=== PATIENT | male | born 1980 | race Caucasian/White ===

== ENCOUNTER 2020-11-04 00:46 | Inpatient (IN) | payer MEDICARE, BC ==
[~2020-11-04] VITALS: Ht 172.7 cm; Wt 120.2 kg
[2020-11-04] MEDS ORDERED: IV NORMAL SALINE 1000 ML BAG IV ONE ×3 (01:00→03:45)
[2020-11-04] MEDS ORDERED: KETOROLAC TROMETHAMINE 30 MG INJ IVP ONE (01:00)
[2020-11-04] MEDS ORDERED: PANTOPRAZOLE SODIUM 40 MG VIAL IV ONE (01:00)
[2020-11-04] MEDS ORDERED: ONDANSETRON 4 MG/2 ML VIAL IV ONE ×2 (01:00→03:45)
--- NOTE | 2020-11-04 01:00 | NUR ---
Pt from home, here for 10 abdominal pain non radiating, no n/v/d.
[2020-11-04 01:12] LABS: HEMATOCRIT 49.4 % (36.7-47.1); MEAN CORPUSCULAR HEMOGLOBIN 32.2 uug (23.8-33.4); PLATELET COUNT (AUTO) 199 K/uL (152-348)
[2020-11-04] MEDS ORDERED: KETOROLAC TROMETHAMINE 30 MG INJ ONE (01:12)
[2020-11-04] MEDS ORDERED: ONDANSETRON 4 MG/2 ML VIAL ONE ×2 (01:12→03:42)
[2020-11-04] MEDS ORDERED: PANTOPRAZOLE SODIUM 40 MG VIAL ONE (01:13)
[2020-11-04 01:21] LABS: CREATININE 1.4 mg/dL (0.6-1.3); POTASSIUM 3.7 mmol/L (3.5-5.1)
[2020-11-04] MEDS ORDERED: HYDROMORPHONE 1 MG/1 ML DISP.SYRIN ONE ×4 (01:28→03:42)
[2020-11-04] MEDS ORDERED: HYDROMORPHONE 1 MG/1 ML DISP.SYRIN IV ONE ×4 (01:30→03:45)
[2020-11-04 01:33] LABS: BILIRUBIN,DIRECT 0.2 mg/dL (0.0-0.2); BILIRUBIN,TOTAL 0.7 mg/dL (0.2-1.0); TOTAL PROTEIN, SERUM 7.6 g/dL (6.4-8.2)
--- NOTE | 2020-11-04 01:40 | NUR ---
Pt taken to ct
[2020-11-04] MEDS ORDERED: IOHEXOL 300MG/ML 100 ML INFUS..BTL ONE (01:42)
[2020-11-04] MEDS ORDERED: IV NORMAL SALINE 250 ML IV ONE (01:42)
[2020-11-04] MEDS ORDERED: SWABABLE VALVE TRANSFER SET EA MC ONE (01:42)
--- NOTE | 2020-11-04 01:52 | NUR ---
pt returned from ct
[2020-11-04] MEDS ORDERED: LIDOCAINE VISCUS 2% 15 ML UDC MM ONE (03:15)
[2020-11-04] MEDS ORDERED: MAG HYDROX/AL HYDROX/SIMETH 30 ML LIQUID UDC PO ONE (03:15)
[2020-11-04] MEDS ORDERED: MAG HYDROX/AL HYDROX/SIMETH 30 ML LIQUID UDC ONE (03:26)
[2020-11-04] MEDS ORDERED: LIDOCAINE VISCUS 2% 15 ML UDC ONE (03:26)
[2020-11-04] MEDS ORDERED: MORPHINE SULFATE 4 MG/1 ML DISP.SYRIN IV ONE (04:00)
[2020-11-04 04:02] LABS: *BILIRUBIN,URIN NEGATIVE (NEGATIVE); *BLOOD, URINE NEGATIVE (NEGATIVE); *CLARITY,URINE CLEAR (CLEAR); *COLOR,URINE YELLOW (YELLOW); *KETONES,URINE NEGATIVE (NEGATIVE); *UROBILINOGEN,URINE 0.2 E.U./dl (NORMAL); LEUKOCYTE ESTERASE ,URINE NEGATIVE (NEGATIVE); NITRITE, URINE NEGATIVE (NEGATIVE); PH,URINE 7.5 (5.0-8.0); UGLUCOSE NEGATIVE (NEGATIVE)
[2020-11-04] MEDS ORDERED: MORPHINE SULFATE 4 MG/1 ML DISP.SYRIN ONE (04:06)
[2020-11-04] MEDS ORDERED: MORPHINE SULFATE 2 MG/1 ML DISP.SYRIN ONE (04:06)
--- NOTE | 2020-11-04 04:07 | NUR ---
Pt. resting in bed with eyes closed. Given blankets and warm pack for abdomen. Pain is 8/10, no new symptoms. Will continue to monitor.
--- NOTE | 2020-11-04 04:25 | NUR ---
Pt to be admitted for intractible abdominal pain, rm [id number].
[2020-11-04] MEDS ORDERED: testosterone IM (04:34)
[2020-11-04] MEDS ORDERED: vitamin d PO (04:34)
[2020-11-04] MEDS ORDERED: PANT40TA2 PO (04:34)
[2020-11-04] MEDS ORDERED: LEVO125T PO (04:34)
[2020-11-04] MEDS ORDERED: OXYC-133 PO (04:34)
[2020-11-04] MEDS ORDERED: rosuvastatin PO (04:34)
[2020-11-04] MEDS ORDERED: doxycycline PO (04:34)
[2020-11-04] MEDS ORDERED: ZOLP10TA2 PO (04:34)
[2020-11-04] MEDS ORDERED: EMTR1TAB13 PO (04:34)
[2020-11-04] MEDS ORDERED: LORA-259 PO (04:34)
[2020-11-04] MEDS ORDERED: FAMO10TA41 PO (04:34)
--- NOTE | 2020-11-04 04:39 | NUR ---
Gave report to SNOIA Plata.
[2020-11-04] MEDS ORDERED: ONDANSETRON 4 MG/2 ML VIAL IV PRN ×2 (05:30→06:30)
[2020-11-04] MEDS ORDERED: ACETAMINOPHEN 650 MG SUPP.RECT RC PRN (05:30)
--- NOTE | 2020-11-04 06:27 | NUR ---
Pt. admitted to med surg under care of Dr. Yvan Johansen. Admitting dx abdominal pain. AxOx4, VSS. C/o medial generalized abdominal pain, "feels like I am being stabbed". Pt is on clear liquids. IV LAC 18G hep lock.Body assessment done, skin is intact. Belongs List completed and place in chart, noted to have $[address] money in safe, pt refuses and wants to keep it with him at bedside. Call light placed within reach. Frequent visual checks done. Will continue to monitor.
[2020-11-04] MEDS ORDERED: OXYCODONE/APAP 5-325 MG TABLET PO PRN (06:30)
[2020-11-04] MEDS ORDERED: MAG HYDROX/AL HYDROX/SIMETH 30 ML LIQUID UDC PO PRN (06:30)
[2020-11-04] MEDS ORDERED: ZOLPIDEM 5 MG TABLET PO PRN (06:30)
[2020-11-04] MEDS ORDERED: ACETAMINOPHEN 325 MG TABLET PO PRN (06:30)
[2020-11-04] MEDS ORDERED: IV 1/2NS 1000 ML 1,000 ML IV PRN (06:30)
[2020-11-04] MEDS ORDERED: MAGNESIUM HYDROXIDE 30 ML LIQUID UDC PO PRN (06:30)
[2020-11-04] MEDS ORDERED: LORAZEPAM 1 MG TABLET PO PRN (06:30)
--- NOTE | 2020-11-04 07:00 | NUR ---
Received patient asleep,sleeping comfortably. No acute distress noted. Rounding made and informed patient to use call light for any concern, understanding noted. Will continue to monitor.
[2020-11-04] MEDS ORDERED: LEVOTHYROXINE SODIUM 125 MCG TABLET PO SCH (08:00)
[2020-11-04] MEDS ORDERED: PANTOPRAZOLE SODIUM 40 MG TABLET.DR PO SCH (08:00)
[2020-11-04] MEDS ORDERED: PANTOPRAZOLE SODIUM 40 MG VIAL IV SCH (09:00)
[2020-11-04] MEDS ORDERED: Medication Not On Formulary EA (Emtricitabine/Tenofov Alafenam (Descovy 200-25 mg Tablet PO SCH (09:00)
--- NOTE | 2020-11-04 09:30 | NUR ---
Patient was complaining about his room being hot, offered to transfer to the next bed. Informed engineering department to check the room and aircondition. Patient is still wants to leave. Charge and die casting supervisor informed. [employer] talked to the patient but still wants to leave. Patient refused morning medication. Informed MD. Will continue to monitor
--- NOTE | 2020-11-04 09:55 | NUR ---
Discharge order made by Dr Joseph. Heplock removed, tolerated well. No distress noted. denies pain. Discharge paper works printed and signed by the patient.
--- NOTE | 2020-11-04 10:05 | NUR ---
Dr Joseph seen the patient and order discharge. Belongings list signed. Discharge instructions given. Patient left for home at [id number] accompanied by his father Ray via private car. He is ambulatory with no signs of any distress. Denies pain. VS WNL. Skin intact.
[2020-11-05] MEDS ORDERED: Medication Not On Formulary EA (Emtricitabine/Tenofov Alafenam (Descovy 200-25 mg Tablet PO SCH (09:00)
== END 2020-11-04 10:05 | disposition home or self-care (01) | DRG 640 ==
LOC: ER 00:50 → MEDSURG3 05:00
PROVIDERS: ADMIT Internal Medicine; ATTEND Internal Medicine
DX: E86.0 Dehydration (principal); N17.0 Acute kidney failure with tubular necrosis; R10.9 Unspecified abdominal pain; E03.9 Hypothyroidism, unspecified; E78.5 Hyperlipidemia, unspecified; Z85.841 Personal history of malignant neoplasm of brain; Z20.822 Contact with and (suspected) exposure to COVID-19
CPT/HCPCS: 36415; 71045; 74021; 83605; 83690; 85025; 93005; A4663; C9113; G0378; J1170; J1885; J2270; J2405; J7030; J7050; Q9967

== ENCOUNTER 2022-04-24 18:20 | Emergency (ER) | payer MEDICARE, BC ==
[~2022-04-24] VITALS: Ht 175.3 cm; Wt 97.5 kg
[~2022-04-24 18:20] MED LIST: EMTR1TAB13 PO; FAMO10TA41 PO; LEVO125T PO; LORA-259 PO; OXYC-133 PO; PANT40TA2 PO; ZOLP10TA2 PO; doxycycline PO; rosuvastatin PO; testosterone IM; vitamin d PO
--- NOTE | 2022-04-24 19:25 | NUR ---
Dr. Saenz at bedside for MSE.
[2022-04-24 20:38] VITALS: BP 141/86
== END 2022-04-24 20:38 | disposition home or self-care (01) ==
LOC: ER 18:20
DX: H91.92 Unspecified hearing loss, left ear (principal); K05.10 Chronic gingivitis, plaque induced; R68.84 Jaw pain; E78.5 Hyperlipidemia, unspecified; E03.9 Hypothyroidism, unspecified; Z85.841 Personal history of malignant neoplasm of brain; Z92.3 Personal history of irradiation; Z79.899 Other long term (current) drug therapy
CPT/HCPCS: A4663

== ENCOUNTER 2023-11-18 11:31 | Emergency (ER) | payer MEDICARE, BC ==
[~2023-11-18] VITALS: Ht 175.3 cm; Wt 59.0 kg
[2023-11-18 11:40] VITALS: O2SAT 97
[2023-11-18 12:34] LABS: *BILIRUBIN,URIN NEGATIVE (NEGATIVE); *BLOOD, URINE NEGATIVE (NEGATIVE); *CLARITY,URINE CLEAR (CLEAR); *COLOR,URINE YELLOW (YELLOW); *KETONES,URINE NEGATIVE (NEGATIVE); *PROTEIN,URINE NEGATIVE (NEGATIVE); *UROBILINOGEN,URINE 0.2 E.U./dl (NORMAL); LEUKOCYTE ESTERASE ,URINE NEGATIVE (NEGATIVE); NITRITE, URINE NEGATIVE (NEGATIVE); UGLUCOSE NEGATIVE (NEGATIVE)
[2023-11-18 12:39] LABS: BASOPHILS % (AUTO) 0.2 % (0.0-2.0); EOSINOPHILS # (AUTO) 0.1 K/uL (0.0-0.7); EOSINOPHILS % (AUTO) 0.9 % (0.0-7.0); HEMATOCRIT 42.1 % (36.7-47.1); HEMOGLOBIN 14.6 g/dL (12.5-16.3); LYMPHOCYTES # (AUTO) 2.4 K/uL (0.8-4.8); LYMPHOCYTES % (AUTO) 30.7 % (20.5-51.5); MEAN CORPUSCULAR HEMOGLOBIN 31.7 uug (23.8-33.4); MEAN CORPUSCULAR HGB CONC 35 g/dL (32.5-36.3); MEAN CORPUSCULAR VOLUME 91.3 fL (73.0-96.2); MONOCYTES # (AUTO) 0.5 K/uL (0.1-1.30); MONOCYTES % (AUTO) 6.4 % (0.0-11.0); NEUTROPHILS # (AUTO) 4.8 K/uL (1.8-8.9); NEUTROPHILS % (AUTO) 61.8 % (38.5-71.5); PLATELET COUNT (AUTO) 282 K/uL (152-348); RED CELL DISTRIBUTION WIDTH 13.5 % (12.1-16.2); WHITE BLOOD COUNT (AUTO) 7.8 K/uL (3.6-10.2)
[2023-11-18 12:42] LABS: DIFFERENTIAL COMMENT 1
[2023-11-18 12:50] LABS: *AMPHETAMINE, URINE NEGATIVE (NEGATIVE); *BARBITURATE, URINE NEGATIVE (NEGATIVE); *BENZODIAZEPINE, URINE NEGATIVE (NEGATIVE); *CANNABINOID, URINE NEGATIVE (NEGATIVE); *COCCAINE, URINE NEGATIVE (NEGATIVE); *OPIATE, URINE POSITIVE (NEGATIVE); *PHENCYCLIDINE SCREEN,URINE NEGATIVE (NEGATIVE); FENTANYL, URINE NEGATIVE (NEGATIVE)
[2023-11-18 12:52] LABS: CALCIUM 8.7 mg/dL (8.5-10.1); CREATININE 1.1 mg/dL (0.6-1.3)
[2023-11-18 13:04] LABS: BILIRUBIN,TOTAL 0.7 mg/dL (0.2-1.0); TOTAL PROTEIN, SERUM 7.6 g/dL (6.4-8.2)
[2023-11-18 13:28] LABS: THYROID STIMULATING HORMONE 13.843 mIU/mL (0.358-3.740)
== END 2023-11-18 12:56 | disposition left against medical advice (07) ==
LOC: ER 11:31
DX: R40.4 Transient alteration of awareness (principal); R74.01 Elevation of levels of liver transaminase levels; F11.90 Opioid use, unspecified, uncomplicated; E03.9 Hypothyroidism, unspecified; E78.5 Hyperlipidemia, unspecified; Z98.890 Other specified postprocedural states; Z79.899 Other long term (current) drug therapy
CPT/HCPCS: 36415; 84443; 85025; 93005; A4606; A4663